=== PATIENT | female | born 1950 | race Caucasian/White ===

== ENCOUNTER → 2022-04-29 | Outpatient (CLI) | payer MEDICARE, OTHER | END | disposition home or self-care (01) | LOC: LAB 11:24 → LAB SHORT 11:24 | DX: N30.01 Acute cystitis with hematuria (principal) | CPT/HCPCS: 87086 ==

== ENCOUNTER 2022-07-16 04:43 | Emergency (ER) | payer MEDICARE, OTHER ==
[~2022-07-16] VITALS: Ht 167.6 cm; Wt 77.1 kg
[2022-07-16] MEDS ORDERED: CLOP75 PO (05:02)
[2022-07-16] MEDS ORDERED: POTA10T PO (05:02)
[2022-07-16] MEDS ORDERED: Crestor20 MG PO (05:02)
[2022-07-16] MEDS ORDERED: FURO20 (05:02)
[2022-07-16] MEDS ORDERED: CONEST1.25 PO (05:03)
[2022-07-16] MEDS ORDERED: FENO145 PO (05:03)
[2022-07-16] MEDS ORDERED: LORA1 (05:04)
[2022-07-16] MEDS ORDERED: LEVSOD75 PO (05:04)
[2022-07-16 05:45] LABS: BASOPHILS ABSOLUTE AUTO 0.06 K/mm3 (0.00-0.23); BASOPHILS PERCENT AUTO 1 % (0-2); EOSINOPHILS ABSOLUTE AUTO 0.34 K/mm3 (0.00-0.68); EOSINOPHILS PERCENT AUTO 3 % (0-6); Hematocrit 39.6 % (33.0-51.0); Hemoglobin 13.2 g/dL (11.5-16.0); IMMATURE GRAN ABSOLUTE AUTO 0.05 K/mm3 (0.00-0.10); IMMATURE GRAN PERCENT AUTO 0 % (0-1); LYMPHOCYTES PERCENT AUTO 11 % (21-46); MONOCYTES ABSOLUTE AUTO 1.34 K/mm3 (0.16-1.47); MONOCYTES PERCENT AUTO 10 % (4-13); Mean Corpuscular HGB 32.8 pg (26.0-34.0); Mean Corpuscular HGB Conc 33.3 g/dL (31.5-36.5); Mean Corpuscular Volume 98 fL (80-100); Mean Platelet Volume 9.9 fL (9.1-12.4); NEUTROPHILS ABSOLUTE AUTO 9.78 K/mm3 (1.96-9.15); NEUTROPHILS PERCENT AUTO 75 % (41-73); Platelet Count 322 K/mm3 (150-400); RDW Coefficient Variation 14.1 % (11.7-14.2); RDW Standard Deviation 51.3 fL (35.1-46.3); Red Blood Cell Count 4.03 M/mm3 (3.80-5.20); White Blood Cell Count 12.97 K/mm3 (4.00-11.30)
[2022-07-16 06:01] LABS: Influenza A, PCR NEGATIVE (NEGATIVE); Influenza B, PCR NEGATIVE (NEGATIVE); Resp Syncytial Virus, PCR NEGATIVE (NEGATIVE); SARS-Cov-2 (COVID-19) PCR, MMC NEGATIVE (NEGATIVE)
[2022-07-16 06:08] LABS: Albumin, Blood 3.6 g/dL (3.4-5.0); Albumin/Globulin Ratio 0.9 (0.8-1.8); Bilirubin, Total 0.5 mg/dL (0.1-1.0); Bun/Creatinine Ratio 14.3 (12.0-20.0); Calcium, Blood 8.6 mg/dL (8.5-10.1); Creatinine, Blood 0.63 mg/dL (0.40-1.00); Globulin, Blood 3.9 g/dL (2.2-4.0); Potassium, Blood 3.9 mmol/L (3.5-5.5); Total Protein, Blood 7.5 g/dL (6.4-8.2)
[2022-07-16] MEDS ORDERED: ALBU90OI INH (06:32)
[2022-07-16] MEDS ORDERED: DOXY100 PO (06:32)
[2022-07-16] MEDS ORDERED: BENZ100A PO (06:32)
== END 2022-07-16 06:48 | disposition home or self-care (01) ==
LOC: ER 04:43
PROVIDERS: Student in an Organized Health Care Education/Training Program
DX: J18.9 Pneumonia, unspecified organism (principal); Z20.822 Contact with and (suspected) exposure to COVID-19
CPT/HCPCS: 0241U; 71045; 80053; 83605; 84484; 85025; 93005; 93010; 94640; 94664; 96374; 99284-25; A9270; J0696; J7512

== ENCOUNTER → 2022-09-02 | Outpatient (CLI) | payer MEDICARE, OTHER ==
[~2022-09-02] MED LIST: ALBU90OI INH; BENZ100A PO; CLOP75 PO; CONEST1.25 PO; Crestor20 MG PO; DOXY100 PO; FENO145 PO; FURO20; LEVSOD75 PO; LORA1; POTA10T PO
== END | disposition home or self-care (01) ==
DX: R30.0 Dysuria (principal)

== ENCOUNTER → 2022-10-02 | Outpatient (CLI) | payer MEDICARE, OTHER | END | disposition home or self-care (01) | LOC: LAB SHORT 10:00 | DX: R30.0 Dysuria (principal) | CPT/HCPCS: 87077; 87086; 87186 ==

== ENCOUNTER 2022-10-14 11:07 | Emergency (ER) | payer MEDICARE, OTHER ==
[~2022-10-14] VITALS: Ht 167.6 cm; Wt 79.4 kg
== END 2022-10-14 12:00 | disposition home or self-care (01) ==
LOC: ER 11:07
DX: M25.561 Pain in right knee (principal); W18.30XA Fall on same level, unspecified, initial encounter; Z79.899 Other long term (current) drug therapy
CPT/HCPCS: 73562-RT

== ENCOUNTER 2024-04-03 09:16 | Emergency (ER) | payer OTHER, MEDICARE ==
[~2024-04-03] VITALS: Ht 167.6 cm; Wt 66.2 kg
[2024-04-03] MEDS ORDERED: Acetaminophen 500 MG Tab PO ONE (09:55)
[2024-04-03] MEDS ORDERED: Methocarbamol 500 MG Tab PO ONE (09:55)
[2024-04-03] MEDS ORDERED: Metoclopramide HCl 5MG / ML 2ML Vial IV ONE (09:55)
[2024-04-03 09:57] LABS: BASOPHILS ABSOLUTE AUTO 0.05 K/mm3 (0.00-0.23); BASOPHILS PERCENT AUTO 1 % (0-2); EOSINOPHILS ABSOLUTE AUTO 0.19 K/mm3 (0.00-0.68); EOSINOPHILS PERCENT AUTO 3 % (0-6); Hematocrit 42.7 % (33.0-51.0); Hemoglobin 14.1 g/dL (11.5-16.0); IMMATURE GRAN ABSOLUTE AUTO 0.02 K/mm3 (0.00-0.10); IMMATURE GRAN PERCENT AUTO 0 % (0-1); LYMPHOCYTES ABSOLUTE AUTO 2.35 K/mm3 (0.84-5.20); LYMPHOCYTES PERCENT AUTO 31 % (21-46); MONOCYTES ABSOLUTE AUTO 0.45 K/mm3 (0.16-1.47); MONOCYTES PERCENT AUTO 6 % (4-13); Mean Corpuscular HGB 32.6 pg (26.0-34.0); Mean Corpuscular Volume 99 fL (80-100); Mean Platelet Volume 9.5 fL (9.1-12.4); NEUTROPHILS ABSOLUTE AUTO 4.55 K/mm3 (1.96-9.15); NEUTROPHILS PERCENT AUTO 60 % (41-73); Platelet Count 372 K/mm3 (150-400); RDW Coefficient Variation 13.3 % (11.7-14.2); RDW Standard Deviation 48.7 fL (35.1-46.3); Red Blood Cell Count 4.33 M/mm3 (3.80-5.20); White Blood Cell Count 7.61 K/mm3 (4.00-11.30)
[2024-04-03] MEDS ORDERED: Prozac40 MG PO (10:01)
[2024-04-03] MEDS ORDERED: BUPR150ER (10:01)
[2024-04-03] MEDS ORDERED: ESTRADIOL1 MG (10:02)
[2024-04-03 10:14] LABS: Albumin, Blood 3.9 g/dL (3.4-5.0); Albumin/Globulin Ratio 1.1 (0.8-1.8); Bilirubin, Total 0.3 mg/dL (0.1-1.0); Bun/Creatinine Ratio 19.2 (12.0-20.0); Calcium, Blood 8.6 mg/dL (8.5-10.1); Creatinine, Blood 0.84 mg/dL (0.40-1.00); Globulin, Blood 3.6 g/dL (2.2-4.0); Potassium, Blood 4.5 mmol/L (3.5-5.5); Total Protein, Blood 7.5 g/dL (6.4-8.2)
[2024-04-03] MEDS ORDERED: Ketorolac Tromethamine 30mg Vial IV ONE (10:25)
[2024-04-03] MEDS ORDERED: NS 1,000 ML IV SCH (10:35)
[2024-04-03 12:30] VITALS: BP 109/55
== END 2024-04-03 12:39 | disposition home or self-care (01) ==
LOC: ER 09:16
PROVIDERS: Physician Assistant
DX: R55 Syncope and collapse (principal); S00.83XA Contusion of other part of head, initial encounter; S40.012A Contusion of left shoulder, initial encounter; W01.10XA Fall on same level from slipping, tripping and stumbling with subsequent striking against unspecified object, initial encounter; Z79.899 Other long term (current) drug therapy; E78.5 Hyperlipidemia, unspecified; E03.9 Hypothyroidism, unspecified
CPT/HCPCS: 70450; 72125; 73030; 80053; 83880; 84484; 85025; 93005; 93010; 96374; 96375; 99284-25; A9270; J1885; J2765; J7030

== ENCOUNTER 2024-05-01 05:45 | Observation (INO) | payer MEDICARE, OTHER ==
[~2024-05-01] VITALS: Ht 167.6 cm; Wt 65.8 kg
[2024-05-01] VITALS (14 sets, daily range): BP systolic 117–139; BP diastolic 54–71
[~2024-05-01 05:45] MED LIST changes: +BUPR150ER; +ESTRADIOL1 MG PO; -FURO20; +FURO20 PO; -LORA1; +LORA1 PO; +Prozac40 MG PO
[2024-05-01] MEDS ORDERED: Atropine/Scopalam/Hyoscam/PB 5 ML UDC PO ONE (06:05)
[2024-05-01] MEDS ORDERED: Lidocaine 2% Viscous Soln 15 ML UDC PO ONE (06:05)
[2024-05-01] MEDS ORDERED: Mag Hydrox/AL Hydrox/Simeth 30 ML UDC PO ONE (06:05)
[2024-05-01 06:49] LABS: BASOPHILS ABSOLUTE AUTO 0.04 K/mm3 (0.00-0.23); BASOPHILS PERCENT AUTO 1 % (0-2); EOSINOPHILS ABSOLUTE AUTO 0.22 K/mm3 (0.00-0.68); EOSINOPHILS PERCENT AUTO 3 % (0-6); Hematocrit 38.6 % (33.0-51.0); Hemoglobin 13.6 g/dL (11.5-16.0); IMMATURE GRAN ABSOLUTE AUTO 0.02 K/mm3 (0.00-0.10); IMMATURE GRAN PERCENT AUTO 0 % (0-1); LYMPHOCYTES ABSOLUTE AUTO 3.15 K/mm3 (0.84-5.20); LYMPHOCYTES PERCENT AUTO 40 % (21-46); MONOCYTES ABSOLUTE AUTO 0.56 K/mm3 (0.16-1.47); MONOCYTES PERCENT AUTO 7 % (4-13); Mean Corpuscular HGB 33.2 pg (26.0-34.0); Mean Corpuscular HGB Conc 35.2 g/dL (31.5-36.5); Mean Corpuscular Volume 94 fL (80-100); Mean Platelet Volume 10.2 fL (9.1-12.4); NEUTROPHILS ABSOLUTE AUTO 3.87 K/mm3 (1.96-9.15); NEUTROPHILS PERCENT AUTO 49 % (41-73); Platelet Count 403 K/mm3 (150-400); RDW Coefficient Variation 13.9 % (11.7-14.2); RDW Standard Deviation 47.1 fL (35.1-46.3); White Blood Cell Count 7.86 K/mm3 (4.00-11.30)
[2024-05-01] MEDS ORDERED: Ketorolac Tromethamine 30mg Vial IV ONE (07:05)
[2024-05-01 07:09] LABS: Albumin, Blood 3.7 g/dL (3.4-5.0); Bilirubin, Total 0.5 mg/dL (0.1-1.0); Bun/Creatinine Ratio 21.4 (12.0-20.0); Calcium, Blood 10.1 mg/dL (8.5-10.1); Creatinine, Blood 0.75 mg/dL (0.40-1.00); Globulin, Blood 3.6 g/dL (2.2-4.0); Potassium, Blood 4.5 mmol/L (3.5-5.5); Total Protein, Blood 7.3 g/dL (6.4-8.2)
[2024-05-01] MEDS ORDERED: Morphine Sulfate 4 MG/1 ML Injection IV ONE (07:50)
[2024-05-01] MEDS ORDERED: NS 1,000 ML IV SCH (07:50)
[2024-05-01] MEDS ORDERED: Piperacillin/Tazobactam Sod 3.375 GM in NS 100 ML IV ONE (08:55)
--- NOTE | 2024-05-01 14:30 | NUR ---
PT ARRIVED TO THE ROOM FROM ER AT APPROXIMATELY 1400. PT ALERT AND ORIENTED UPON ARRIVAL. SHE DENIED PAIN. VSS. EDUCATED TO USE CALL LIGHT. PT EDUCATED ABOUT NPO STATUS.
[2024-05-01] MEDS ORDERED: Lactated Ringer's 1,000 ML IV SCH (14:35)
[2024-05-01] MEDS ORDERED: Ondansetron HCl 2 MG / ML 2ML Vial IV PRN (14:35)
[2024-05-01] MEDS ORDERED: Indocyanine Green 25 MG Vial IV ONE (14:40)
[2024-05-01] MEDS ORDERED: FentaNYL Citrate 50 MCG/ML 2 ML Injection ONE (15:13)
[2024-05-01] MEDS ORDERED: Rocuronium Bromide 10 MG/ML 5ML Injection IV ONE ×2 (15:13→17:06)
[2024-05-01] MEDS ORDERED: propofoL 20 ML IV ONE (15:13)
[2024-05-01] MEDS ORDERED: Lactated Ringer's 1,000 ML IV ONE (15:36)
[2024-05-01] MEDS ORDERED: Piperacillin/Tazobactam Sod 3.375 GM ONE (15:48)
[2024-05-01] MEDS ORDERED: NS 100 ML IV ONE (15:51)
[2024-05-01] MEDS ORDERED: Bupivacaine 0.5% Inj 10 ML Vial ONE ×2 (16:15→16:26)
--- NOTE | 2024-05-01 16:22 | NUR ---
PT TAKEN TO OR AT THIS TIME.
[2024-05-01] MEDS ORDERED: Midazolam HCl 1MG / ML 2ML Vial ONE (16:24)
--- NOTE | 2024-05-01 16:24 | NUR ---
PT ARRIVES TO PACU VIA GURNEY FROM RM 212 AT 1615. PLEASANT & SMILING. SURGICAL PACK COMPLETE. SURGICAL HAT/PAS SLEEVES/BP CUFF PLACED. AFEBRILE/VSS. LR AT TKO. WARM BLANKETS PLACED. NO COMPLAINTS AT THIS TIME.
[2024-05-01] MEDS ORDERED: Morphine Sulfate 4 MG/1 ML Injection IV PRN (16:35)
[2024-05-01] MEDS ORDERED: OxyCODONE HCL 5 MG TAB PO PRN (16:35)
--- NOTE | 2024-05-01 16:43 | NUR ---
PT TO OR 1 VIA [facility] w/[employer] AT 1643.
[2024-05-01] MEDS ORDERED: Dexamethasone Sod Phos 10 MG/ML 1ML VIAL ONE (16:55)
[2024-05-01] MEDS ORDERED: Ondansetron HCl 2 MG / ML 2ML Vial ONE (16:55)
[2024-05-01] MEDS ORDERED: Phenylephrine HCl 100 MCG/ML-NS 10MLSYR (1MG/10ML) ONE (16:58)
[2024-05-01] MEDS ORDERED: Piperacillin/Tazobactam Sod 3.375 GM in NS 100 ML IV SCH (17:00)
[2024-05-01] MEDS ORDERED: Sugammadex Sodium 200 MG/2ML SDV (100 MG/ML) ONE (17:41)
--- NOTE | 2024-05-01 19:20 | NUR ---
SHIFT SUMMARY PT ARRIVED BACK FROM PACU AT 1705. PT ALERT/ORIENTED. PT REPORTS ABD PAIN IS STARTING TO INCREASE. BEDSIDE REPORT GIVEN TO WILLIAM LOCKETT. PT PARTICIPATED WITH BEDSIDE REPORT.
[2024-05-01] MEDS ORDERED: Sennosides 8.6 MG Tab PO SCH (21:00)
[2024-05-01] MEDS ORDERED: Rosuvastatin Calcium 10 MG Tab PO SCH (21:00)
[2024-05-01] MEDS ORDERED: Lactobacil 2-S.Thermo-Bifido 1 1 Cap PO SCH (21:00)
[2024-05-01] MEDS ORDERED: Famotidine 10 MG/ML 2ML Vial IV SCH (21:00)
[2024-05-01] MEDS ORDERED: Docusate Sodium 100 MG Cap PO SCH (21:00)
[2024-05-01] MEDS ORDERED: LORazepam 1 MG Tab PO SCH (21:00)
--- NOTE | 2024-05-02 04:33 | NUR ---
SHIFT SUMMARY CESAR WAS ALERT AND FULLY ORIENTED ON ASSESSMENT AND HAD JUST RETURNED FROM SURGERY. GENERAL ANESTHESIA WORE OFF NICELY, PT ABLE TO AMBULATE TO BATHROOM AND VOID. PAIN MANAGED NICELY. INSCISION SITES ARE C/D/I. PT RESTING IN BED AT A LOW POSITION WITH CALL LIGHT IN REACH. NO ACUTE EVENTS TONIGHT.
[2024-05-02 04:46] LABS: BASOPHILS ABSOLUTE AUTO 0.02 K/mm3 (0.00-0.23); BASOPHILS PERCENT AUTO 0 % (0-2); EOSINOPHILS PERCENT AUTO 0 % (0-6); Hematocrit 35.3 % (33.0-51.0); Hemoglobin 11.6 g/dL (11.5-16.0); IMMATURE GRAN ABSOLUTE AUTO 0.05 K/mm3 (0.00-0.10); IMMATURE GRAN PERCENT AUTO 1 % (0-1); LYMPHOCYTES ABSOLUTE AUTO 0.85 K/mm3 (0.84-5.20); LYMPHOCYTES PERCENT AUTO 9 % (21-46); MONOCYTES PERCENT AUTO 5 % (4-13); Mean Corpuscular HGB 32.7 pg (26.0-34.0); Mean Corpuscular HGB Conc 32.9 g/dL (31.5-36.5); Mean Platelet Volume 9.6 fL (9.1-12.4); NEUTROPHILS ABSOLUTE AUTO 8.39 K/mm3 (1.96-9.15); NEUTROPHILS PERCENT AUTO 86 % (41-73); Platelet Count 329 K/mm3 (150-400); RDW Coefficient Variation 14.2 % (11.7-14.2); RDW Standard Deviation 51.8 fL (35.1-46.3); Red Blood Cell Count 3.55 M/mm3 (3.80-5.20); White Blood Cell Count 9.81 K/mm3 (4.00-11.30)
[2024-05-02 04:48] LABS: Mean Corpuscular Volume 99 fL (80-100)
[2024-05-02 05:26] VITALS: BP 122/58
[2024-05-02 05:33] LABS: Albumin, Blood 3.1 g/dL (3.4-5.0); Bilirubin, Total 0.4 mg/dL (0.1-1.0); Bun/Creatinine Ratio 16.9 (12.0-20.0); Creatinine, Blood 0.77 mg/dL (0.40-1.00); Potassium, Blood 4.4 mmol/L (3.5-5.5); Total Protein, Blood 6.1 g/dL (6.4-8.2)
[2024-05-02 05:36] LABS: Calcium, Blood 7.8 mg/dL (8.5-10.1)
[2024-05-02] MEDS ORDERED: Levothyroxine Sodium 0.075 MG Tab PO SCH (06:00)
[2024-05-02 08:07] VITALS: BP 116/59
[2024-05-02] MEDS ORDERED: Potassium Chloride 10 Meq Tablet SA PO SCH (09:00)
[2024-05-02] MEDS ORDERED: FLUoxetine HCL 20 MG CAP PO SCH (09:00)
[2024-05-02] MEDS ORDERED: Furosemide 20 MG Tab PO SCH (09:00)
[2024-05-02] MEDS ORDERED: buPROPion HCL 150 MG TAB.SR.12H PO SCH (09:00)
[2024-05-02] MEDS ORDERED: BUPROPION HCL100 MG PO (14:00)
--- NOTE | 2024-05-02 14:20 | NUR ---
DISCHARGE/SHIFT SUMMARY: A&Ox4. PLEASANT AND COOPERATIVE WITH CARE. CALLS APPROPRIATELY AND IS ABLE TO ADVOCATE NEEDS EFFECTIVELY. AMBULATES INDEPENDENTLY, THOUGH HAS Hx SYNCOPE AND DID C/O DIZZINESS UPON STANDING. LBM TODAY; LOOSE. MEDS WHOLE WITH FLUIDS WITHOUT DIFFICULTY. MEDICATED PAIN x2; WILL CALL SURGEON'S OFFICE IF UNABLE TO CONTROL PAIN WITH NONPHARMACOLOGICAL AND OTC MEDS. IV REMOVED; TOLERATED WELL. PATIENT ESCORTED FROM FLOOR BY WITH ALL BELONGINGS AND DISCHARGE PACKET @ 6960. TRANSPORTATION PROVIDED BY VIA POV.
== END 2024-05-02 14:33 | disposition home or self-care (01) ==
LOC: ER 05:45 → SURS 05:46
PROVIDERS: Student in an Organized Health Care Education/Training Program; Surgery; ADMIT Internal Medicine
PROC: 3E0T3BZ Introduction of Anesthetic Agent into Peripheral Nerves and Plexi, Percutaneous Approach (ICD-10-PCS; principal; 2024-05-01 17:00)
PROC: 8E0W4CZ Robotic Assisted Procedure of Trunk Region, Percutaneous Endoscopic Approach (ICD-10-PCS; principal; 2024-05-01 17:00)
PROC: 0FT44ZZ Resection of Gallbladder, Percutaneous Endoscopic Approach (ICD-10-PCS; principal; 2024-05-01 17:00)
DX: K80.00 Calculus of gallbladder with acute cholecystitis without obstruction (principal); E78.5 Hyperlipidemia, unspecified; E03.9 Hypothyroidism, unspecified; F32.A Depression, unspecified; I25.10 Atherosclerotic heart disease of native coronary artery without angina pectoris; Z79.899 Other long term (current) drug therapy; Z86.73 Personal history of transient ischemic attack (TIA), and cerebral infarction without residual deficits
CPT/HCPCS: 36415; 71046; 74177; 76705; 80053; 83690; 84484; 85025; 88304; 93005; 93010; 96365-59; 96375; 99285-25; A9270; G0378; J1100; J1885; J2250; J2270; J2371; J2405; J2543; J2704; J3010; J7030; J7120; Q9967

== ENCOUNTER 2024-05-28 09:36 | Emergency (ER) | payer MEDICARE, OTHER ==
[~2024-05-28] VITALS: Ht 167.6 cm; Wt 65.8 kg
[~2024-05-28 09:36] MED LIST changes: +BUPROPION HCL100 MG PO
[2024-05-28 10:06] LABS: BASOPHILS ABSOLUTE AUTO 0.05 K/mm3 (0.00-0.23); BASOPHILS PERCENT AUTO 1 % (0-2); EOSINOPHILS ABSOLUTE AUTO 0.39 K/mm3 (0.00-0.68); EOSINOPHILS PERCENT AUTO 4 % (0-6); Hematocrit 38.7 % (33.0-51.0); Hemoglobin 12.7 g/dL (11.5-16.0); IMMATURE GRAN ABSOLUTE AUTO 0.04 K/mm3 (0.00-0.10); IMMATURE GRAN PERCENT AUTO 0 % (0-1); LYMPHOCYTES ABSOLUTE AUTO 2.52 K/mm3 (0.84-5.20); LYMPHOCYTES PERCENT AUTO 26 % (21-46); MONOCYTES ABSOLUTE AUTO 0.71 K/mm3 (0.16-1.47); MONOCYTES PERCENT AUTO 7 % (4-13); Mean Corpuscular HGB 32.9 pg (26.0-34.0); Mean Corpuscular HGB Conc 32.8 g/dL (31.5-36.5); Mean Corpuscular Volume 100 fL (80-100); Mean Platelet Volume 9.7 fL (9.1-12.4); NEUTROPHILS ABSOLUTE AUTO 6.11 K/mm3 (1.96-9.15); NEUTROPHILS PERCENT AUTO 62 % (41-73); Platelet Count 412 K/mm3 (150-400); RDW Coefficient Variation 14.7 % (11.7-14.2); RDW Standard Deviation 54.4 fL (35.1-46.3); Red Blood Cell Count 3.86 M/mm3 (3.80-5.20); White Blood Cell Count 9.82 K/mm3 (4.00-11.30)
[2024-05-28 10:25] LABS: Albumin, Blood 3.9 g/dL (3.4-5.0); Albumin/Globulin Ratio 1.1 (0.8-1.8); Bilirubin, Total 0.3 mg/dL (0.1-1.0); Bun/Creatinine Ratio 21.7 (12.0-20.0); Calcium, Blood 8.6 mg/dL (8.5-10.1); Creatinine, Blood 0.88 mg/dL (0.40-1.00); Globulin, Blood 3.4 g/dL (2.2-4.0); Potassium, Blood 3.8 mmol/L (3.5-5.5); Total Protein, Blood 7.3 g/dL (6.4-8.2)
[2024-05-28] MEDS ORDERED: NS 1,000 ML IV SCH (13:00)
[2024-05-28] MEDS ORDERED: HYDROmorphone HCl/Pf 1MG SYR IV ONE (13:00)
[2024-05-28] MEDS ORDERED: Ondansetron HCl 2 MG / ML 2ML Vial IV ONE (13:00)
[2024-05-28] MEDS ORDERED: CeFAZolin Sodium 2,000 MG in NS 100 ML IV ONE (15:25)
[2024-05-28] MEDS ORDERED: CEPH500 PO (15:40)
[2024-05-28 16:10] VITALS: BP 122/53
== END 2024-05-28 16:16 | disposition home or self-care (01) ==
LOC: ER 09:36
PROVIDERS: Emergency Medicine
DX: T81.40XA Infection following a procedure, unspecified, initial encounter (principal); L03.311 Cellulitis of abdominal wall; X58.XXXA Exposure to other specified factors, initial encounter
CPT/HCPCS: 74177; 80053; 83690; 85025; 96365-59; 96375; 99284-25; A9270; J0690; J1170; J2405; J7030; Q9967

== ENCOUNTER 2024-12-04 10:01 | Emergency (ER) | payer MEDICARE, OTHER ==
[~2024-12-04] VITALS: Ht 167.6 cm; Wt 63.5 kg
[~2024-12-04 10:01] MED LIST changes: +CEPH500 PO
[2024-12-04 10:27] VITALS: BP 145/76
[2024-12-04 11:27] LABS: BASOPHILS ABSOLUTE AUTO 0.05 K/mm3 (0.00-0.23); BASOPHILS PERCENT AUTO 1 % (0-2); EOSINOPHILS ABSOLUTE AUTO 0.17 K/mm3 (0.00-0.68); EOSINOPHILS PERCENT AUTO 3 % (0-6); Hematocrit 42.7 % (33.0-51.0); Hemoglobin 14.3 g/dL (11.5-16.0); IMMATURE GRAN ABSOLUTE AUTO 0.01 K/mm3 (0.00-0.10); IMMATURE GRAN PERCENT AUTO 0 % (0-1); LYMPHOCYTES ABSOLUTE AUTO 2.22 K/mm3 (0.84-5.20); LYMPHOCYTES PERCENT AUTO 41 % (21-46); MONOCYTES ABSOLUTE AUTO 0.38 K/mm3 (0.16-1.47); MONOCYTES PERCENT AUTO 7 % (4-13); Mean Corpuscular HGB Conc 33.5 g/dL (31.5-36.5); Mean Corpuscular Volume 99 fL (80-100); Mean Platelet Volume 10.1 fL (9.1-12.4); NEUTROPHILS ABSOLUTE AUTO 2.54 K/mm3 (1.96-9.15); NEUTROPHILS PERCENT AUTO 47 % (41-73); Platelet Count 368 K/mm3 (150-400); RDW Coefficient Variation 13.3 % (11.7-14.2); RDW Standard Deviation 48.6 fL (35.1-46.3); Red Blood Cell Count 4.33 M/mm3 (3.80-5.20); White Blood Cell Count 5.37 K/mm3 (4.00-11.30)
[2024-12-04 11:49] LABS: Albumin, Blood 4.3 g/dL (3.4-5.0); Albumin/Globulin Ratio 1.2 (0.8-1.8); Bilirubin, Total 0.4 mg/dL (0.1-1.0); Bun/Creatinine Ratio 28.5 (12.0-20.0); Calcium, Blood 9.4 mg/dL (8.5-10.1); Creatinine, Blood 0.84 mg/dL (0.40-1.00); Globulin, Blood 3.5 g/dL (2.2-4.0); Total Protein, Blood 7.8 g/dL (6.4-8.2)
[2024-12-04] MEDS ORDERED: Ketorolac Tromethamine 15mg Vial IV ONE (12:50)
[2024-12-04] MEDS ORDERED: Robaxin750 MG PO (14:12)
== END 2024-12-04 14:39 | disposition home or self-care (01) ==
LOC: ER 10:01
PROVIDERS: Emergency Medicine
DX: S39.011A Strain of muscle, fascia and tendon of abdomen, initial encounter (principal); M54.50 Low back pain, unspecified; E78.5 Hyperlipidemia, unspecified; Z79.1 Long term (current) use of non-steroidal anti-inflammatories (NSAID); Z79.899 Other long term (current) drug therapy; Z79.2 Long term (current) use of antibiotics; X58.XXXA Exposure to other specified factors, initial encounter
CPT/HCPCS: 71045; 74177; 80053; 83690; 84484; 85025; 93005; 93010; 96374-59; 99284-25; J1885; Q9967

== ENCOUNTER 2025-01-31 09:06 | Emergency (ER) | payer MEDICARE, OTHER ==
[~2025-01-31] VITALS: Ht 167.6 cm; Wt 65.8 kg
[~2025-01-31 09:06] MED LIST changes: +Robaxin750 MG PO
[2025-01-31] MEDS ORDERED: HYDROmorphone HCl/Pf 1MG SYR IM ONE (09:40)
[2025-01-31] MEDS ORDERED: OXYC5 PO (09:59)
[2025-01-31 10:35] VITALS: BP 100/45
== END 2025-01-31 10:45 | disposition home or self-care (01) ==
LOC: ER 09:06
DX: S60.211A Contusion of right wrist, initial encounter (principal); W18.30XA Fall on same level, unspecified, initial encounter
CPT/HCPCS: 73110; 99283-25; J1171

== ENCOUNTER 2025-02-02 10:37 | Emergency (ER) | payer OTHER, MEDICARE ==
[~2025-02-02] VITALS: Ht 167.6 cm; Wt 65.8 kg
[~2025-02-02 10:37] MED LIST changes: +OXYC5 PO
[2025-02-02 10:41] VITALS: BP 101/85
[2025-02-02] MEDS ORDERED: Ketorolac Tromethamine 30mg Vial IM ONE (11:40)
== END 2025-02-02 11:55 | disposition home or self-care (01) ==
LOC: ER 10:37
DX: S69.91XD Unspecified injury of right wrist, hand and finger(s), subsequent encounter (principal); E03.9 Hypothyroidism, unspecified; E78.5 Hyperlipidemia, unspecified; W01.0XXD Fall on same level from slipping, tripping and stumbling without subsequent striking against object, subsequent encounter; Z86.73 Personal history of transient ischemic attack (TIA), and cerebral infarction without residual deficits; Z79.899 Other long term (current) drug therapy
CPT/HCPCS: 29125; 73100; 96372-59; 99283-25; J1885